=== PATIENT | female | born 1990 | race Two or more races ===

== ENCOUNTER 2020-02-11 15:37 | Emergency (ER) | payer MEDICAID ==
[~2020-02-11] VITALS: Ht 160 cm; Wt 88.4 kg
[2020-02-11 16:51] LABS: BASOPHILS # (AUTO) 0.03 x10^3/uL (0-0.1); BASOPHILS % (AUTO) 0 % (0-1); EOSINOPHILS # (AUTO) 0.11 x10^3/uL (0-0.4); EOSINOPHILS % (AUTO) 1 % (1-7); LYMPHOCYTES # (AUTO) 2.81 x10^3/uL (1-3.4); LYMPHOCYTES % (AUTO) 36 % (22-44); MD NO; MEAN CORPUSCULAR HEMOGLOBIN 30.8 pg (27.0-34.8); MEAN CORPUSCULAR VOLUME 90.5 fL (80-100); MEAN PLATELET VOLUME 9.2 fL (7.4-10.4); MONOCYTES # (AUTO) 0.49 x10^3/uL (0.2-0.8); MONOCYTES % (AUTO) 6 % (2-9); NEUTROPHILS # (AUTO) 4.42 x10^3/uL (1.8-6.8); NEUTROPHILS % (AUTO) 56 % (42-75); PLATELET COUNT 271 x10^3/uL (130-400); RED BLOOD COUNT 5.11 x10^6/uL (3.82-5.3)
[2020-02-11 16:56] LABS: ALBUMIN 4.5 g/dL (3.4-5.0); ANION GAP 5 mmol/L (5-15); CHLORIDE 105 mmol/L (98-107)
[2020-02-11 17:03] LABS: ALANINE AMINOTRANSFERASE 26 U/L (12-78); ALKALINE PHOSPHATASE 76 U/L (45-117); BILIRUBIN,TOTAL 0.6 mg/dL (0.2-1.0); CALCIUM 9.5 mg/dL (8.5-10.1); TOTAL PROTEIN 9.5 g/dL (6.4-8.2)
--- NOTE | 2020-02-11 17:09 | NUR ---
TRANSACTION ADVISORY SERVICES MANAGER: PT AMBULATORY TO ROOM FROM LOBBY
--- NOTE | 2020-02-11 17:26 | NUR ---
Pt c/o 2 1/2 months of n/v without relief from Rx "nausea tablets". Pt denies urinary symptoms.
--- NOTE | 2020-02-11 17:26 | NUR ---
TASK RN: CONTACT WITH PT. 30 YR OLD FEMALE HERE WITH C/O "I HAVE BEEN VOMITING FOR A MONTH AND A HALF. MY DR THAT I SAW TODAY WANTED ME TO GET SOME BLOOD WORK AND A CT. SHE WAS CONCERNED ABOUT MY GALLBLADDER OR APPENDIX. PT LAYING ON GURNEY, NO ACUTE DISTRESS NOTED. NO VOMITING AT THIS TIME.
[2020-02-11 17:28] VITALS: BP 129/83
--- NOTE | 2020-02-11 17:30 | NUR ---
Pt ambulates with steady gait and balance from room to bathroom to provide urine sample.
[2020-02-11 17:46] LABS: MICROSCOPIC NOT IND
--- NOTE | 2020-02-11 17:55 | NUR ---
TASK RN: PT UPDATED ON POC. REPORT TO PEPE LEYVA.
--- NOTE | 2020-02-11 19:13 | NUR ---
Provided bedside report to AUTUMN Cornejo. All questions answered. No needs expressed at this time.
== END 2020-02-11 19:41 | disposition home or self-care (01) ==
LOC: ED 19:00
DX: R10.13 Epigastric pain (principal); R11.2 Nausea with vomiting, unspecified; F17.200 Nicotine dependence, unspecified, uncomplicated
CPT/HCPCS: 36415; 76700; 80053; 81003; 83690; 84703; 85025; 99284